=== PATIENT | female | born 1995 | race Caucasian/White ===

== ENCOUNTER → 2017-10-31 15:41 | Emergency (ER) | payer MEDICAID | END | disposition left against medical advice (07) | LOC: C.ER 15:41 | DX: Z02.89 Encounter for other administrative examinations (principal); Z00.8 Encounter for other general examination ==

== ENCOUNTER 2018-08-18 05:35 | Emergency (ER) | payer MEDICAID ==
--- NOTE | 2018-08-18 05:50 | C.PDOC ---
History Of Present Illness 23 year old female presents to the ED for evaluation of feeling anxious. and "having a panic attack" Patient reports she woke up at 02:00 today feeling anxious. pt states she was at her baseline previously. mother bedside states pt "had a panic attack" Patient's mother states patient might be feeling "anxious about the cat". Patient denies Si/HI, hallucinations, CP, SOB, palpitations, headache, dizziness. no h/of gi bleed,melena hematochezia, hememesis, vaginal bleeding. Time Seen by Provider: 08/18/18 05:47 Chief Complaint (Nursing): Anxiety History Per: Patient History/Exam Limitations: no limitations Onset/Duration Of Symptoms: Hrs (02:00) Current Symptoms Are (Timing): Still Present Suicide/Self Injury Attempted (Context): None Modifying Factor(s): None Associated Symptoms: Anxiety. denies: Depression, Suicidal Thoughts, Suicidal Plan Recent travel outside of the [place]: No Additional History Per: Patient, Family Past Medical History Reviewed: Historical Data, Nursing Documentation, Vital Signs Vital Signs: Last Vital Signs Temp 98.5 F 08/18/18 05:41 Pulse 101 H 08/18/18 05:41 Resp 16 08/18/18 05:41 BP 112/76 08/18/18 05:41 Pulse Ox 100 08/18/18 05:41 - Medical History PMH: Anemia Surgical History: Tonsillectomy Family History: States: Unknown Family Hx - Social History Hx Alcohol Use: No Hx Substance Use: No Review Of Systems Constitutional: Negative for: Fever, Chills Cardiovascular: Negative for: Chest Pain, Palpitations Respiratory: Negative for: Cough, Shortness of Breath Gastrointestinal: Negative for: Nausea, Vomiting, Abdominal Pain Skin: Negative for: Rash Neurological: Negative for: Weakness, Numbness, Headache, Dizziness Physical Exam - Physical Exam Appears: Non-toxic, No Acute Distress, Other (anxious appearing) Skin: Normal Color, Warm, Dry Head: Atraumatic, Normacephalic Eye(s): bilateral: Normal Inspection Neck: Normal ROM, Supple Chest: Symmetrical Cardiovascular: Rhythm Regular Respiratory: Normal Breath Sounds, No Rales, No Rhonchi, No Wheezing Gastrointestinal/Abdominal: Soft, No Tenderness, No Guarding, No Rebound Extremity: Normal ROM, No Tenderness, No Swelling Neurological/Psych: Oriented x3, Normal Speech, Normal Cognition Gait: Steady ED Course And Treatment ECG: Interpreted By Me, Viewed By Me ECG Rhythm: Sinus Tachycardia Interpretation Of ECG: No ST/T wave changes Rate From EC (BPM) O2 Sat by Pulse Oximetry: 100 (ON RA) Pulse Ox Interpretation: Normal Medical Decision Making Medical Decision Making: suspected anxiety - no other medical complaint. no si hi. pt minimally tachy on arrival, anxious appearing no h/o of gi bleed, vaginal bleeding. ucg neg in er. Plan: * EKG * CXR * Ativan 0.5 mg PO * pt reassesed symptoms improving, no si hi no hallcinations. pt accompanied by mother. mother agrees to outpt follow up. no sob. no cp. cxr neg as read by me. pt satting 99% ra. well appearing in nad. Disposition - Disposition Referrals: [facility] [Outside] [facility] [Outside] [facility] [Outside] Disposition: HOME/ ROUTINE Disposition Time: 07:00 Condition: STABLE Additional Instructions: return to er with worsening symptoms or concerns. please follow up with specialist. return to er with worsening. Instructions: Anxiety, Adult (DC) Forms: [employer] (Chinese) - Clinical Impression Clinical Impression: Anxiety - Scribe Statement The provider has reviewed the documentation as recorded by the Scribe Mick Padron All medical record entries made by the Scribe were at my direction and personally dictated by me. I have reviewed the chart and agree that the record accurately reflects my personal performance of the history, physical exam, medical decision making, and the department course for this patient. I have also personally directed, reviewed, and agree with the discharge instructions and disposition.
[2018-08-18 05:54] VITALS: O2SAT 100
[2018-08-18 06:58] VITALS: BP 105/78; PULSE 83; RESP 20; TEMP 98.3
--- NOTE | 2018-08-18 07:29 | RAD ---
Date of service: 08/18/2018 HISTORY: sob COMPARISON: No prior. TECHNIQUE: Chest PA and lateral FINDINGS: LUNGS: No active pulmonary disease. PLEURA: No significant pleural effusion identified. No pneumothorax apparent. CARDIOVASCULAR: No aortic atherosclerotic calcification present. Normal cardiac size. No pulmonary vascular congestion. OSSEOUS STRUCTURES: No significant abnormalities. VISUALIZED UPPER ABDOMEN: Normal. OTHER FINDINGS: None. IMPRESSION: No active disease.
--- NOTE | 2018-08-19 23:58 | CARD ---
APPROVED REPORT Date of service: 08/18/2018 EKG Measurement Heart [id number] <Conclusion> Sinus tachycardia Otherwise normal ECG
== END 2018-08-18 06:58 | disposition home or self-care (01) ==
LOC: C.ER 05:35
DX: F41.9 Anxiety disorder, unspecified (principal)